=== PATIENT | male | born 1950 | race Caucasian/White ===

== ENCOUNTER 2018-12-13 12:22 | Outpatient (CLI) | payer OTHER ==
[~2018-12-13] VITALS: Ht 168.9 cm; Wt 83.9 kg
[2018-12-13] MEDS ORDERED: albuterol 2.5 MG/3 ML nebule NEB ONE (14:40)
== END 2018-12-13 23:59 | disposition home or self-care (01) ==
LOC: CARD DIAG 12:22
PROVIDERS: ATTEND Orthopaedic Surgery
DX: I08.2 Rheumatic disorders of both aortic and tricuspid valves (principal); I25.10 Atherosclerotic heart disease of native coronary artery without angina pectoris; C34.90 Malignant neoplasm of unspecified part of unspecified bronchus or lung; J44.9 Chronic obstructive pulmonary disease, unspecified
CPT/HCPCS: 93306; 94060; 94760

== ENCOUNTER 2019-02-28 14:06 | Outpatient (CLI) | payer OTHER | END 2019-02-28 23:59 | disposition home or self-care (01) | LOC: RT 14:06 | PROVIDERS: ATTEND Orthopaedic Surgery | DX: J44.9 Chronic obstructive pulmonary disease, unspecified (principal); I25.10 Atherosclerotic heart disease of native coronary artery without angina pectoris; Z85.118 Personal history of other malignant neoplasm of bronchus and lung; Z87.891 Personal history of nicotine dependence; Z79.84 Long term (current) use of oral hypoglycemic drugs; Z79.82 Long term (current) use of aspirin; Z79.899 Other long term (current) drug therapy | CPT/HCPCS: 94010; 94729 ==